=== PATIENT | male | born 1945 | race Caucasian/White ===

== ENCOUNTER 2019-06-12 09:07 | Observation (INO) ==
[2019-06-12] MEDS ORDERED: THIAMINE 200 MG/2 ML VIAL IV STA (09:32)
[2019-06-12 10:09] LABS: Basophils # 0.1 10*3/uL (0.0-0.2); Basophils % 0.9 % (0.0-0.8); Eosinophils # 0.2 10*3/uL (0.0-0.87); Eosinophils % 2.7 % (0.00-10.9); Hematocrit 42.6 VOL% (42.0-52.0); Hemoglobin 14.1 GM/DL (14.0-18.0); Immature Granulocytes % 0.5 %; Immature Granulocytes Absolute 0.04 #; Lymphocytes # 1.6 10*3/uL (1.4-4.0); Lymphocytes % 18.5 % (21.2-54.2); Mean Corpuscular HGB Conc 33.1 GM/DL (32-36); Mean Corpuscular Volume 95.9 FL (87-102); Mean Platelet Volume 12.5 FL (9.6-12.0); Monocytes % 7.4 % (1.7-12.7); Platelet Count 125 T/CUMM (130-400); Red Blood Count 4.44 MC/CUMM (3.8-5.5); Red Cell Distribution Width 13.2 % (9.3-17.3); White Blood Count 8.5 T/CUMM (4-12)
[2019-06-12 10:27] LABS: Albumin 3.4 G/DL (3.4-5.0); Anisocytosis Slight; Bilirubin,Total 0.8 MG/DL (0.2-1.0); Calcium 8.7 MG/DL (8.5-10.1); Osmolality,Calculated 287.5 MOS/KG (273-304); Platelet Estimate Adequate; Total Protein 6.7 G/DL (6.4-8.3)
[2019-06-12 10:42] LABS: Folate > 24.0 NG/ML (5.4-24.0); Vitamin B12 641 PG/ML (211-911)
[2019-06-12] MEDS ORDERED: ACETAMINOPHEN 325 MG TABLET PO PRN (11:32)
[2019-06-12] MEDS ORDERED: ONDANSETRON 4 MG/2 ML VIAL IV PRN (11:32)
[2019-06-12] MEDS ORDERED: INFLUENZA VIRUS VACCINE 0.5 ML SYRINGE IM ONE (15:22)
[2019-06-12] MEDS ORDERED: DEXTROSE 10% 250 ML BAG IV PRN (16:24)
[2019-06-12] MEDS ORDERED: GLUCAGON 1 MG VIAL IM PRN (16:24)
[2019-06-12] MEDS: GABAPENTIN 400 MG CAPSULE PO SCH ×2 (16:55→21:36)
[2019-06-12] MEDS: SUCRALFATE 1 GM TABLET PO SCH ×3 (16:55→21:36)
[2019-06-12] MEDS: INSULIN LISPRO 100 UNIT/ML SUBCUT SCH ×2 (17:11→22:17)
[2019-06-12 19:12] LABS: Barbiturates Screen,Urine Negative (Negative); Benzodiazepines Screen,Urine Negative (Negative); Cannabinoid Screen,Urine Negative (Negative); Opiate Screen,Urine Negative (Negative); Phencyclidine Screen,Urine Negative (Negative)
[2019-06-12] MEDS ORDERED: traZODone 50 MG TABLET PO SCH (21:00)
[2019-06-12] MEDS ORDERED: DONEPEZIL 10 MG TABLET PO SCH (21:00)
[2019-06-12] MEDS ORDERED: ATORVASTATIN 10 MG TABLET PO SCH (21:00)
[2019-06-12] MEDS: ATENOLOL 25 MG TABLET PO SCH (21:37)
[2019-06-12] MEDS: LACTULOSE 20 GM/30 ML UDCUP PO SCH (21:37)
[2019-06-12] MEDS: QUEtiapine 25 MG TABLET PO SCH (21:37)
[2019-06-13 05:25] LABS: Basophils # 0.1 10*3/uL (0.0-0.2); Basophils % 1.5 % (0.0-0.8); Eosinophils # 0.3 10*3/uL (0.0-0.87); Hematocrit 44.3 VOL% (42.0-52.0); Hemoglobin 14.2 GM/DL (14.0-18.0); Immature Granulocytes % 0.5 %; Immature Granulocytes Absolute 0.04 #; Lymphocytes # 2.5 10*3/uL (1.4-4.0); Mean Corpuscular HGB Conc 32.1 GM/DL (32-36); Mean Corpuscular Volume 95.9 FL (87-102); Mean Platelet Volume 12.6 FL (9.6-12.0); Monocytes % 8.3 % (1.7-12.7); Neutrophils % 56.7 % (38.7-73.9); Platelet Count 139 T/CUMM (130-400); Red Blood Count 4.62 MC/CUMM (3.8-5.5); Red Cell Distribution Width 13.3 % (9.3-17.3); White Blood Count 8.6 T/CUMM (4-12)
[2019-06-13 05:49] LABS: Calcium 8.7 MG/DL (8.5-10.1); Osmolality,Calculated 287.3 MOS/KG (273-304); Risk Ratio 2.75; Thyroid Stimulating Hormone 1.62 uIU/ml (0.358-3.74); VLDL CHOLESTEROL 28.4 MG/DL
[2019-06-13 05:55] LABS: Folate 18.9 NG/ML (5.4-24.0)
[2019-06-13] MEDS: INSULIN LISPRO 100 UNIT/ML SUBCUT SCH ×2 (08:51→12:03)
[2019-06-13] MEDS: LACTULOSE 20 GM/30 ML UDCUP PO SCH (08:52)
[2019-06-13] MEDS: GABAPENTIN 400 MG CAPSULE PO SCH (08:53)
[2019-06-13] MEDS: QUEtiapine 25 MG TABLET PO SCH (08:53)
[2019-06-13] MEDS: ATENOLOL 25 MG TABLET PO SCH (08:54)
[2019-06-13] MEDS: SUCRALFATE 1 GM TABLET PO SCH (08:54)
[2019-06-13] MEDS ORDERED: CELECOXIB 200 MG CAPSULE PO SCH (09:00)
[2019-06-13] MEDS ORDERED: CLOPIDOGREL 75 MG TABLET PO SCH (09:00)
[2019-06-13] MEDS ORDERED: CHOLECALCIFEROL 1,000 UNIT TABLET PO SCH (09:00)
[2019-06-13] MEDS ORDERED: amLODIPine 5 MG TABLET PO SCH (09:00)
[2019-06-13] MEDS ORDERED: DULoxetine 20 MG CAPSULE PO SCH (09:00)
[2019-06-13] MEDS ORDERED: PANTOPRAZOLE 40 MG TABLET PO SCH ×2 (09:00)
[2019-06-13] MEDS ORDERED: LISINOPRIL 10 MG TABLET PO SCH (09:00)
[2019-06-13] MEDS ORDERED: THIAMINE 100 MG TABLET PO SCH (09:00)
[2019-06-13 12:02] VITALS: BP 165/68
== END 2019-06-13 13:28 ==
LOC: N.EDINP 09:07 → N.ED 09:07 → SUATTDRO 11:31 → N.2E 14:58
PROVIDERS: ADMIT Internal Medicine Nephrology; ATTEND Internal Medicine